=== PATIENT | male | born 1960 | race Two or more races ===

== ENCOUNTER 2021-02-11 16:55 | Emergency (ER) | payer SELFPAY ==
[2021-02-11] MEDS ORDERED: cloNIDine HCL 0.1 MG TAB PO ONE (18:15)
[2021-02-11] MEDS ORDERED: LABETALOL HCL 5 MG/ML 4ML SYRINGE IV STA (18:39)
[2021-02-11] MEDS ORDERED: LABETALOL HCL 200 MG TAB PO ONE ×2 (20:45)
[2021-02-11] MEDS ORDERED: LABETALOL HCL 5 MG/ML 4ML SYRINGE IV ONE ×2 (20:45)
[2021-02-11 20:57] LABS: Basophils # (auto) 0.1 10 ^3/uL (0-0.2); Basophils % (auto) 0.7 % (0.0-2.0); Eosinophils # (auto) 0.2 10 ^3/uL (0-0.8); Eosinophils % (auto) 2.8 % (0.0-7.0); Hematocrit 44.9 % (41.0-53.0); Hemoglobin 15.5 g/dL (13.5-17.5); Lymphocytes # (auto) 3.3 10 ^3/uL (0.4-5.4); Lymphocytes % (auto) 37.9 % (10.0-50.0); Mean Corpuscular Hemoglobin 30.5 pg (28.0-32.0); Mean Corpuscular Hgb Conc. 34.6 g/dL (32.0-36.0); Mean Corpuscular Volume 88.1 fL (80.0-100.0); Monocytes # (auto) 0.7 10 ^3/uL (0-1.3); Monocytes % (auto) 8.4 % (0.0-12.0); Neutrophils # (auto) 4.3 10 ^3/uL (1.6-8.6); Neutrophils % (auto) 50.2 % (37.0-80.0); Nucleated Red Blood Cells % 0.1 %; Red Cell Distribution Width 13.9 % (11.8-14.3); White Blood Cell 8.6 10^3/uL (4.4-10.8)
[2021-02-11 21:06] LABS: BUN/Creatinine Ratio 24.3; Calcium 8.7 mg/dL (8.5-10.1); Potassium 3.7 mmol/L (3.5-5.1)
[2021-02-11] MEDS ORDERED: hydrALAZINE HCL 20 MG/ML VL IV ONE (21:15)
[2021-02-12 05:00] VITALS: BP 148/90
== END 2021-02-12 05:28 | disposition home or self-care (01) ==
LOC: ER 16:55 → EDBD 16:55 → ER 02-12 05:28
DX: R07.89 Other chest pain (principal); R42 Dizziness and giddiness; I10 Essential (primary) hypertension; E78.5 Hyperlipidemia, unspecified
CPT/HCPCS: 36415; 70450; 71046; 80048; 84484; 85025; 93005; 96374; 96375; 99285; J0360; J3490